=== PATIENT | female | born 1980 | race African-American/Black ===

== ENCOUNTER 2022-04-16 10:03 | Emergency (ER) | payer OTHER, SELFPAY ==
[2022-04-16 10:11] VITALS: BP 202/97; PULSE 63; RESP 14; TEMP 36.4; O2SAT 98
--- NOTE | 2022-04-16 10:15 | ECG_ITS ---
Measurements Intervals Only Rate: 66 P: 26 NE: 140 QRS: 35 QRSD: 91 T: 26 QT: 385 QTc: 404 Interpretive Statements SINUS RHYTHM NO PREVIOUS ECG AVAILABLE FOR COMPARISON Electronically Signed On 04-16-2022 15:08:03 CAFETERIA ASSOCIATE by Cesilia Barlow M.D.
[2022-04-16 10:31] LABS: Basophils Absolute Auto 0.1 K/mm3 (0.0-0.1); Basophils Percent Auto 0.9 % (0.2-1.2); Eosinophils Absolute Auto 0.1 K/mm3 (0-0.3); Eosinophils Percent Auto 1.1 % (0-4.4); Hematocrit 33.6 % (37.0-47.0); Hemoglobin 10.3 g/dL (12.0-15.0); Immature Granulocyte Absolute 0.01 K/mm3 (0.00-0.031); Immature Granulocyte Percent A 0.2 % (0-0.5); Lymphocytes Absolute Auto 1.76 K/mm3 (0.9-3.2); Lymphocytes Percent Auto 31.3 % (18.3-44.2); Mean Corpuscular HGB Conc 30.7 g/dl (32-36); Mean Corpuscular Hemoglobin 23.9 pg (26-34); Mean Platelet Volume 9.9 fl (7.4-10.4); Monocytes Absolute Auto 0.4 K/mm3 (0.1-0.6); Monocytes Percent Auto 6.4 % (2.6-8.5); Neutrophils Absolute Auto 3.4 K/mm3 (1.3-6.7); Neutrophils Percent Auto 60.1 % (45.5-73.1); Platelet Count Result 365 k/mm3 (150-375); Red Blood Count 4.31 M/mm3 (4.2-5.4); Red Cell Distribution Width 17.7 % (11.5-14.5); White Blood Count 5.6 K/mm3 (4.5-10.0)
[2022-04-16 10:46] LABS: Alanine Aminotransferase 13 U/L (6-35); Albumin Level 4.2 g/dL (3.5-5.1); Alkaline Phosphatase 61 U/L (38-126); Anion Gap 4 mmol/L (8-16); Aspartate Amino Transferase 28 U/L (14-36); Bilirubin,Total 0.4 mg/dL (0.2-1.3); Blood Urea Nitrogen 11 mg/dL (7-17); Calcium 8.4 mg/dL (8.4-10.2); Carbon Dioxide 27 mmol/L (22-30); Chloride 106 mmol/L (98-107); Estimated CRCL calculation 110 ml/min; Estimated Glomerular Filt Rate > 60; Glucose 84 mg/dL (65-110); Potassium 5.4 mmol/L (3.4-5.0); Sodium 137 mmol/L (137-145)
[2022-04-16 10:57] LABS: Troponin I < 0.012 ng/mL (0.000-0.034)
[2022-04-16 11:13] VITALS: BP 216/112; PULSE 78; RESP 18; O2SAT 99
--- NOTE | 2022-04-16 11:15 | PC.NURSE ---
patient refuses to undress or be put on monitor stating thatshe has things to do and cant be here long
--- NOTE | 2022-04-16 12:07 | ED.GENADULT ---
HPI - General Adult General Chief complaint: Recheck/Abnormal Lab/Rx Stated complaint: Hypertension - sent by GARDENER Time Seen by Provider: 04/16/22 11:53 History of Present Illness HPI narrative: 42-year-old female with remote history of hypertension presenting to the emergency department for evaluation of elevated blood pressure. Patient does not have a primary care physician. Patient was following up with her POCKET SETTER LOCKSTITCH today for routine checkup due to her elevated blood pressure she was referred to the emergency department. Patient is currently denying any complaints. Patient states that yesterday she did have a headache but attributes that to not eating very much. Patient denies any current headache and denies any associated chest pain or shortness of breath. Patient is unaware of any other past medical issues other than hypertension. Related Data Home Medications Medication Instructions Recorded Confirmed No Home Medications 04/16/22 04/16/22 Allergies Allergy/AdvReac Type Severity Reaction Status Date / Time No Known Allergies Allergy Unverified 04/16/22 10:04 Review of Systems Review of Systems: CONSTITUTIONAL: Denies fever, chills, or sweats. EYES: Denies visual changes, redness, or discharge. ENT: Denies rhinorrhea, congestion, sore throat, or otalgia. CARDIOVASCULAR: Denies chest pain, palpitations, or edema. RESPIRATORY: Denies cough or dyspnea. GASTROINTESTINAL: Denies abdominal pain, nausea, vomiting, or diarrhea. GENITOURINARY: Denies dysuria or hematuria. SKIN: Denies rash or itching. MUSCULOSKELETAL: Denies back pain, joint pain, or myalgia. 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 HEAD: normocephalic, atraumatic. EYES: PERRLA/EOMI, conjunctivae clear. NOSE: Normal no drainage EARS:TMS clear with good light reflex. THROAT: Pharynx clear, no exudate. NECK: Supple. No adenopathy, no masses. RESPIRATORY: Airway patent, respirations nonlabored. Clear to auscultation bilaterally, no rales, rhonchi, wheezing. CARDIOVASCULAR: Regular rate and rhythm without murmurs rubs or gallops. ABDOMINAL: Soft, nontender, nondistended, normal bowel sounds MUSCULOSKELETAL: Moves all extremities. Strength/ROM intact, No edema, No calf tenderness. NEURO: Alert. Cranial nerves II through XII intact. Grossly intact SKIN: Warm, dry. Normal Color Course Course Emergency Course: Patient was notified of her elevated potassium and her elevated blood pressure. Patient was strongly encouraged to to stay but patient repeated back in her own words that she was aware of the risk of having an elevated potassium and untreated blood pressure. Patient did not even want to stay for me to have a discussion with the on-call medical doctor to get her started on an antihypertensive. Vital Signs Vital signs: Vital Signs Temperature 97.6 F 04/16/22 10:11 Pulse Rate 63 04/16/22 10:11 Respiratory Rate 14 04/16/22 10:11 Blood Pressure 202/97 H 04/16/22 10:11 Pulse Oximetry 98 04/16/22 10:11 Oxygen Delivery Room Air 04/16/22 10:11 Temperature 97.6 F 04/16/22 10:11 Pulse Rate 63 04/16/22 12:33 Respiratory Rate 16 04/16/22 12:33 Blood Pressure 162/123 H 04/16
--- NOTE | 2022-04-16 12:15 | PC.NURSE ---
pt states she cannot stay so states she is refusing treatment at this time. edp made aware.
--- NOTE | 2022-04-16 12:26 | PC.NURSE ---
dr fan at bedside explaining risks of leaving ama. paper signed.
[2022-04-16 12:33] VITALS: BP 162/123; PULSE 63; RESP 16
== END 2022-04-16 12:33 | disposition left against medical advice (07) ==
PROVIDERS: Emergency Medicine; Emergency Provider Emergency Medicine
DX: I10 Essential (primary) hypertension (principal); E87.5 Hyperkalemia
CPT/HCPCS: 36415; 80053; 84484; 85025; 93005; 99284

== ENCOUNTER 2022-04-17 14:59 | Emergency (ER) | payer OTHER, SELFPAY ==
--- NOTE | ~2022-04-17 | CT_ITS ---
EXAMINATION: CT brain wo con INDICATION: Headache COMPARISON: None TECHNIQUE: Standard unenhanced head CT. The dose-length product (DLP) was 605.33 mGy-cm. The mA was a djusted according to patient size. Iterative reconstruction technique was employed. FINDINGS: There is no intracranial hemorrhage, acute infarction, or abnormal mass lesion. The ventric les are normal. There is no abnormal mass effect or midline shift. The powell-white matter differentiat ion is normal. The basal cisterns are patent. The orbits are normal. The paranasal sinuses, mastoids and calvarium are normal. IMPRESSION: 1. No acute intracranial abnormality. Reviewed, dictated and finalized at location A. [employer]
--- NOTE | ~2022-04-17 | XR_ITS ---
EXAMINATION: XR chest 2V 04/17/2022 16:50 INDICATION: Hypertension. Chest pain. PROCEDURE: 2 view chest COMPARISON: No prior studies for comparison. FINDINGS: The lungs are clear. The cardiomediastinal silhouette is within normal limits. There are no pleural effusions. There is no pneumothorax suspected. IMPRESSION: 1: NO ACUTE CARDIOPULMONARY DISEASE. Reviewed, dictated and finalized at location A. E RIGGER
[2022-04-17 15:24] VITALS: BP 211/116; PULSE 67; RESP 18; TEMP 36.8; O2SAT 100
--- NOTE | 2022-04-17 16:36 | ECG_ITS ---
Measurements Intervals [place] Rate: 69 P: 33 AL: 140 QRS: 38 QRSD: 86 T: 13 QT: 394 QTc: 423 Interpretive Statements SINUS RHYTHM NORMAL ECG COMPARED TO ECG 04/16/2022 10:18:30 NO SIGNIFICANT CHANGES Electronically Signed On 04-18-2022 7:44:19 INTERNAL WHOLESALER by Sameer Lenz M.D.
[2022-04-17] MEDS: ASPIRIN 81 MG CHEWABLE TABLET 324 MG PO (16:51)
[2022-04-17 16:53] VITALS: BP 182/121; PULSE 73; RESP 18; O2SAT 100
[2022-04-17 16:55] LABS: Basophils Percent Auto 0.5 % (0.2-1.2); Eosinophils Percent Auto 0.5 % (0-4.4); Hematocrit 35.9 % (37.0-47.0); Immature Granulocyte Absolute 0.01 K/mm3 (0.00-0.031); Immature Granulocyte Percent A 0.1 % (0-0.5); Lymphocytes Absolute Auto 2.46 K/mm3 (0.9-3.2); Lymphocytes Percent Auto 33.6 % (18.3-44.2); Mean Corpuscular HGB Conc 30.6 g/dl (32-36); Mean Corpuscular Hemoglobin 23.9 pg (26-34); Mean Platelet Volume 9.9 fl (7.4-10.4); Monocytes Absolute Auto 0.4 K/mm3 (0.1-0.6); Monocytes Percent Auto 5.7 % (2.6-8.5); Neutrophils Absolute Auto 4.4 K/mm3 (1.3-6.7); Neutrophils Percent Auto 59.6 % (45.5-73.1); Platelet Count Result 414 k/mm3 (150-375); Red Cell Distribution Width 17.6 % (11.5-14.5); White Blood Count 7.3 K/mm3 (4.5-10.0)
[2022-04-17 17:08] LABS: Prothrombin Time 13.1 Seconds (11.1-14.7)
[2022-04-17 17:09] LABS: Partial Thromboplastin Time 28.2 SECONDS (22.3-36.8)
[2022-04-17 17:14] LABS: Alanine Aminotransferase 14 U/L (6-35); Albumin Level 4.7 g/dL (3.5-5.1); Alkaline Phosphatase 65 U/L (38-126); Anion Gap 5 mmol/L (8-16); Aspartate Amino Transferase 32 U/L (14-36); Bilirubin,Total 0.6 mg/dL (0.2-1.3); Blood Urea Nitrogen 9 mg/dL (7-17); Calcium 8.8 mg/dL (8.4-10.2); Carbon Dioxide 27 mmol/L (22-30); Chloride 102 mmol/L (98-107); Estimated CRCL calculation 95 ml/min; Estimated Glomerular Filt Rate > 60; Glucose 91 mg/dL (65-110); Lipase 156 U/L (23-300); Potassium 4.4 mmol/L (3.4-5.0); Sodium 134 mmol/L (137-145)
[2022-04-17 17:25] LABS: Troponin I < 0.012 ng/mL (0.000-0.034)
[2022-04-17 17:45] VITALS: BP 190/118; PULSE 69; RESP 20; O2SAT 97
--- NOTE | 2022-04-17 18:05 | ED.RECABL ---
HPI - Recheck/Abnormal Lab/Rx General Chief Complaint: Recheck/Abnormal Lab/Rx Stated Complaint: HTN Time Seen by Provider: 04/17/22 17:06 Source: patient Mode of arrival: ambulatory Limitations: no limitations History of Present Illness HPI narrative: This is a 42-year-old female that presents to the emergency department for elevated blood pressure. Does report known history of hypertension. Reports she when she was in her 20s she was controlled on antihypertensives. Reports she has not been on any antihypertensives in years. Does note that her blood pressure ran high in her pregnancies, about 5 years ago. She was seen at her fund director office yesterday and her blood pressure was elevated so she was sent to the ER. She did not wish to stay in the hospital at that time or have any further treatment. She tried to follow-up with PCP today and once again was sent back to the ER. Reports last night she was not feeling well she had a headache and felt some tingling in her feet. Today she currently has no complaints. Her PCP did prescribe an antihypertensive. She has not picked this up or taken it yet. Denies chest pain, shortness of breath, focal numbness or weakness, or lower extremity edema. Related Data Home Medications Medication Instructions Recorded Confirmed No Home Medications 04/16/22 04/16/22 Allergies Allergy/AdvReac Type Severity Reaction Status Date / Time No Known Allergies Allergy Unverified 04/16/22 10:04 Review of Systems Review of Systems: CONSTITUTIONAL: Denies fever EYES: Denies visual changes CARDIOVASCULAR: Denies chest pain, or edema. RESPIRATORY: Denies dyspnea. GASTROINTESTINAL: Denies vomiting NEUROLOGIC: Reports headache. Denies numbness, or weakness. 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 HEAD: Normocephalic, atraumatic. EYES: PERRLA and EOMI. ENT: Nares clear, no rhinorrhea or epistaxis. Mucous membranes moist. Oropharynx without tonsillar hypertrophy exudate or other lesions. Bilateral TMs pearly powell non-bulging NECK: Supple. No adenopathy or masses. CHEST: Clear to auscultation. No respiratory distress. No wheezes rales or rhonchi HEART: Regular rate and rhythm. No murmur heard. Normal peripheral pulses. EXTREMITIES: Normal range of motion. No edema. Strength equal in bilateral upper and lower extremities (5/5) SKIN: Warm, dry, no rash. NEURO: No focal deficits. Alert and oriented x3. Cranial nerves II through XII grossly intact PSYCH: Normal mood and affect Course Vital Signs Vital signs: Vital Signs Temperature 98.2 F 04/17/22 15:24 Pulse Rate 67 04/17/22 15:24 Respiratory Rate 18 04/17/22 15:24 Blood Pressure 211/116 H 04/17/22 15:24 Pulse Oximetry 100 04/17/22 15:24 Temperature 98.2 F 04/17/22 15:24 Pulse Rate 79 04/17/22 18:45 Respiratory Rate 21 H 04/17/22 18:45 Blood Pressure 141/82 H 04/17/22 18:45 Pulse Oximetry 100 04/17/22 18:45 MDM - Recheck/Abnormal Lab/Rx MDM Narrative Medical decision making narrative: Patient presents to the emergency department for elevated blood pressures. Reports known longstanding histo
[2022-04-17] MEDS: hydrALAZINE HCL 20 MG/ML VIAL 10 MG IV PUSH (18:24)
--- NOTE | 2022-04-17 18:30 | PC.NURSE ---
Pt to CT scan via stretcher at this time.
[2022-04-17 18:45] VITALS: BP 141/82; PULSE 79; RESP 21; O2SAT 100
[2022-04-17 19:15] LABS: Cholesterol 202 mg/dL (0-200); HDL Direct 53 mg/dL; Triglycerides 134 mg/dL (<150)
[2022-04-17 19:26] LABS: LDL Cholesterol Direct 110 mg/dL
== END 2022-04-17 19:43 | disposition home or self-care (01) ==
PROVIDERS: Emergency Medicine; Emergency Provider Physician Assistant; PCP Family Medicine
DX: I10 Essential (primary) hypertension (principal)
CPT/HCPCS: 36415; 70450; 71046; 80053; 80061; 83690; 84443; 84484; 85025; 85610; 85730; 93005; 96374; 99284; A9270; J0360

== ENCOUNTER 2023-06-17 14:46 | Outpatient (CLI) | payer OTHER, SELFPAY ==
--- NOTE | ~2023-06-17 | MM_ITS ---
EXAMINATION: MM screening vannesa BI w mary alice HISTORY: Screening mammogram TECHNIQUE: Craniocaudal and mediolateral oblique 3-D tomosynthesis images were obtained and synthetic 2-D images were generated. CAD analysis was submitted and interpreted. COMPARISON: No prior mammogram is available for comparison at this institution. Baseline examination. BREAST PARENCHYMAL COMPOSITION: The breasts are almost entirely fatty. FINDINGS: There is no evidence of suspicious mass, calcification, or architectural distortion to sugg est malignancy in either breast. There has been no suspicious interval change. IMPRESSION: 1. No mammographic evidence of malignancy. 2. Recommend routine screening mammography in one year. BI-RADS Category 1: Negative Reviewed, dictated and finalized at location A. CRANE DRIVER
== END 2023-06-17 14:47 | disposition home or self-care (01) ==
LOC: ANHIMG 14:48
PROVIDERS: PCP Emergency Medicine; Visit Provider Obstetrics & Gynecology
DX: Z12.31 Encounter for screening mammogram for malignant neoplasm of breast (principal)
CPT/HCPCS: 77063; 77067

== ENCOUNTER 2024-10-13 07:14 | Outpatient (CLI) | payer OTHER, SELFPAY ==
--- NOTE | ~2024-10-13 | MM_ITS ---
EXAMINATION: MM screening vannesa BI w mary alice HISTORY: Screening mammogram TECHNIQUE: Craniocaudal and mediolateral oblique 3-D tomosynthesis images were obtained and synthetic 2-D images were generated. CAD analysis was submitted and interpreted. COMPARISON: 06/17/2023 BREAST PARENCHYMAL COMPOSITION: The breasts are almost entirely fatty. FINDINGS: There is no evidence of suspicious mass, calcification, or architectural distortion to sug gest malignancy in either breast. There has been no suspicious interval change. IMPRESSION: 1. No mammographic evidence of malignancy. 2. Recommend routine screening mammography in one year. BI-RADS Category 1: Negative Reviewed, dictated and finalized at location B.
--- OUTSIDE RECORDS SUMMARY | 2024-10-13 07:18 | XMS_ITS | Clinical Summary ---
Author Organization [facility] C Address [address] [place] [address] Care Team Providers Care Archives Specialist Name Role Phone Sameer Cleaning MD Unavailable [phone] Percy Toledo MD Primary Care Provider [phone] Lenore Ott MD Unavailable [phone] Allergies No known active allergies Medications amLODIPine (NORVASC) 10 mg tabletIndication s:Hypertension, essential Take 1 tablet (10 mg total) by mouth daily 90 tablet 3 08/24/2024 6 Active atenoloL (TENORMIN) 25 mg tabletIndication s:Hypertension, essential Take 1 tablet (25 mg total) by mouth daily 30 tablet 2 08/24/2024 5 Active Active Problems Problem Noted Date Diagnosed Date Over weight 08/20/2022 Shortness of breath 08/20/2022 Hypertension, essential 08/20/2022 History of stillbirth 03/21/2019 Class 3 severe obesity due t o excess calories with serious comorbidity in adult 03/21/2019 Assessment & Plan (08/24/2024 9:39 AM CDT): Chronic. Uncontrolled. Goal: 125lb Recommend Nutritional every other Thursday Seminar. Recommended Medication :none History of classical section 03/21/2019 Heterozygous MTHFR mutation [id number] 03/21/2019 Encounter for care or examin ation of mother immediately after delivery 02/09/2019 Chronic hypertension 10/23/2018 Prothrombin mutation 09/16/2018 Assessment & Plan (10/07/2018 2:26 PM CDT): Continue lovenox 60mg daily Growth assessment every 4 weeks testing at 32 weeks gestation Resolved Problems Problem Noted Date Diagnosed Date Resolved Date Supervision of high risk pre gnancy in third trimester 02/07/2019 03/21/2019 Overview (02/07/2019): Added automatically from request for surgery [id number] History of HELLP syndrome, currently 10/24/19 19 03/21/2019 Elevated blood pressure reading 10/07/2018 03/21/2019 Assessment & Plan (10/07/2018 2:28 PM CDT): Cbc, cmp and uric acid drawn today Reviewed when to call headache, blurry vision. Pt to follow up in 2 weeks unless any symtomsprior. (history of severe pre-E and HELLP) Supervision of other high ri sk , antepartum 09/16/2018 03/21/2019 Assessment & Plan (10/07/2018 2:26 PM CDT): SIUP at 15_6 weeks gestation in tv presentation with a normal chico. Anterior placenta. RTN in 2 weeks Thrombophilia affecting , antepartum 09/17/19 19 03/21/2019 History of stillbirth in cur rently patient, unspecified trimester 09/16/2018 9 MTHFR deficiency complicatin g , unspecified trimester 09/16/2018 03/21/2019 Assessment & Plan (10/07/2018 2:25 PM CDT): Continue asa and folgard rx bid Obesity affecting in first trimester 09/03/2018 03/21/2019 High-risk , multigr avida of advanced maternal age, antepartum 09/03/2018 03/21/2019 AMA (advanced maternal age) multigravida 35+ 7 03/21/2019 Encounters Date Type Department Care Team Description 08/24/2024 9:00 AM CDT Office Visit [facility] Family Medicine at [address] [place] [address] Percy Toledo MD Encounter for annual health examination (Primary Dx); Encounter for screening mammogram for malignant neoplasm of breast; Class 2 severe obesity due to excess calories with serious comorbidity and body mass index (BMI) of 38.0 to 38.9 in adult (HCC); Hypertension, essential from Last 3 Months Immunizations Immunization Administration Dates Next Due DTP 01/11/1987, 6,1982,05/06,1982 Hep B, Adolescent or Pediatric 12/27/1996 Influenza, Quadrivalent, Spl it, Preservative Free, Intramuscular 02/08/2019 Influenza, Unspecified 02/17/2024(Deferred: Poppy ent decision) MMR 02/12/2019(Deferred: Patient Refused),02/11/1993,08/24/1984 OPV 01/11/1987, 5,1982,05/06,1982 Pfizer SARS-CoV-2 Monovalent Vaccination (12+ Yrs) PURPLE 12/08/2020,11/17/2020 Tdap 02/09/2019 Surgical History Surgery Date Site/Laterality Comments SECTION 05/11/2005 - 05/10/2006 Medical History Medical History Date Comments Hypertension Family History Medical History Relation Name Comments Hypertension Father Diabetes Maternal Grandmother Heart disease Maternal Grandmother Hypertension Maternal Grandmother Diabetes Mother Relation Name Status Comments Father Alive Maternal Grandmother Mother Alive Social History Tobacco Use Types Packs/Day Years Used Date Smoking Tobacco: Never Smokeless Tobacco: Never Alcohol Use Standard Drinks/Week Comments Never 0 (1 standard drink = 0.6 oz pur e alcohol) Humiliation, Afraid, Rape, and Kick questionnair e Answer Date Recorded Fear of Current or Ex-Partner No Emotionally Abused No 09/03/2018 Physically Abused No 09/03/2018 Sexually Abused No 09/03/2018 AUDIT-C Answer Date Recorded Frequency of Alcohol Consumption Never 09/03/2018 Average Number of Drinks Not on file 019 Frequency of Binge Drinking Not on file 08/10 PHQ-2 Answer Date Recorded PHQ-2 Total Score (If total score is 3 or more points, staff should administer the PHQ-9) 0 08/24/2024 Paris Depression Scale Answer Date Recorded Paris Depression Scale Total 0 03/21/2019 The thought of harming myself has occurred to me . 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[employer]ES Gender Identity Not on file Sexual Orientation Not on file Obstetrics History Para Term AB IAB SAB Ectopic Multiple Livin g Live Births 3 3 3 0 1 1 Date Outcome GA Total Labor Labor/2nd/3rd Weight Sex Type Anes PTL Cammy A1 A5 Name Clin 2005 22w 0d 0.369 kg (13 oz) F CS-Un spec Epidur al N Demis e Apolonia Complications:Toxemia in pre gnancy 2016 23w 0d 0.142 kg (5 oz) M Vag-S pont N Demis e Sorand en Complications:Toxemia in pre gnancy 2018 33w 4d 1.51 kg (3 lb 5.3 oz) M CS-LT ranv Epidur al N Livin g 3 7 LATHA CARVAJAL, Geovanni Lopez MD Complications:Pre eclampsia Delivery [facility]) Last Filed Vital Signs Vital Sign Reading Time Taken Comments Blood Pressure 147/98 08/24/2024 9:17 AM CDT Pulse 71 08/24/2024 9:17 AM CDT Temperature 36.4 C (97.6 F) 08/24/2024 9:17 AM CDT Respiratory Rate 18 08/24/2024 9:17 AM CDT Oxygen Saturation 97% 08/24/2024 9:17 AM CDT Inhaled Oxygen Concentration - - Weight 95.1 kg (209 lb 9.6 oz) 08/24/2024 9:17 A M CDT Height 157.5 cm (5' 2) 08/24/2024 9:17 AM CDT Body Mass Index 38.34 08/24/2024 9:17 AM CDT Plan of Treatment Health Maintenance Due Date Last Done Comments Cervical Cancer Screening 1982 Varicella Vaccines (1 of 2 - 13+ 2-dose series) 1995 Covid-19 Vaccine (3 - season) 2024 12/08/2020, 11/17/2020 Influenza Vaccine (Season Ended) 2025 02/08/2019 Depression Screening 08/24/2025 08/24/2024, 08/24/2024, 03/21/2019, Additional history exists Regular Well Visit/Exam 18-64 08/24/2025 08/24/2024 Breast Cancer Screening-Mammogram 10/06/2025 Postponed from 1982 (Patient declined, but will receive in the future) DTaP/Tdap/Td Vaccine (7 - Td or Tdap) 02/09/2029 02/09/2019, 01/11/1987, 12/02/1985, Additional history exists Hepatitis B Screening Completed 12/27/1996 Hepatitis C Screening Completed 09/06/2018 HPV Vaccines Aged Out No longer eligi ble based on patient's age to complete this topic Pneumococcal vaccine <65 Aged Out No longer eligible based on patient's age to complete this topic Medical Devices Implanted Type Area Can Sealer Device Identifier Shelf Expiration Date Model / Serial / Lot [employer] [id number] Seprafilm 6x5in Barrier Adhesion Sterile Disposable Latex Free - [id number] Implanted:Qty: 1 on 02/07/2019 by Sameer Cleaning MD at [facility] [employer] [id number] / / Procedures Procedure Name Priority Date/Time Associated Diagnosis Comments HEPATITIS C ANTIBODY Routine 09/06/2018 9:17 AM CDT Supervision of high risk in first trimester from Last 3 Months or Most Recently Relevant to Health Maintenance Results * Hepatitis C antibody (09/06/2018 9:17 AM CDT) Hep C Ab Non-Reactiv e Non-Reactiv e [facility] Blood specimen (specimen) 09/06/2018 9:17 AM CDT 09/06/2018 10:35 AM CDT Narrative [facility] - 09/06/2018 11:25 AM CDT us Sameer Cleaning MD LAB MICROBIOLOGY - GENERAL OR DERABLES Final Result [facility] [address] Department [place] [address] from Last 3 Months or Most Recently Relevant to Health Maintenance Insurance [employer] Address: [facility] [id number] [place] [address] [facility] [employer] Address: [address] [place] [address] Advance Directives For more information, please contact: [phone] * Full Code (Latest Code Status on File) Date Activated Date Inactivated Comments 02/07/2019 8:35 PM 02/14/2019 11:58 PM * Full Code Date Activated Date Inactivated Comments 02/07/2019 3:06 PM 02/07/2019 8:35 PM Care Teams Archives Specialist Relationship Specialty Start Date End Date Percy Toledo MD [address] [facility] [address] [place] [address] PCP - General Family Medicine 08/24/24 Sameer Cleanign MD Consulting Physician Obstetrics and Gynecology 09/03/18 Lenore Ott MD [address] [facility] [address] [place] [address] Obstetrics and Gynecology 08/24/24
--- OUTSIDE RECORDS SUMMARY | 2024-10-13 07:18 | XMS_ITS | Encounter Summary ---
Author Organization [facility] Address [address] [place] [address] Care Team Providers Care Rail Car Painter/Sandblaster Name Role Phone Gerald Saeed MD Primary Care Provider Unav ailable Encounter Details Date Type Department Care Team (Late st Contact Info) Description 03/09/[address] 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 Answer Date of Assessment Author No 03/03/2017 1:56 PM CDMelissa Ortiz, RN * Is person blind or have serious difficulty seeing? Answer Date of Assessment Author No 03/03/2017 1:56 PM CDT Melissa Roman RN * Does person have serious difficulty walking/climbing stairs? Answer Date of Assessment Author No 03/03/2017 1:56 PM CDT Melissa Roman RN * Does person have difficulty dressing/bathing? Answer Date of Assessment Author No 03/03/2017 1:56 PM CDT Melissa Roman RN * Does person have difficulty doing errands alone? Answer Date of Assessment Author No 03/03/2017 1:56 PM CDT Melissa Roman RN documented as of this encounter Mental Status * Does person have difficulty concentrating/remembering/making decisions? Answer Entry Date Author No 03/03/2017 1:56 PM CDT Melissa Roman RN documented in this encounter Plan of Treatment Not on file documented as of this encounter Procedures Procedure Name Priority Date/Time Associated Diagnosis Comments CYTOGENETICS PROD OF CONCEPTION PANEL Routine 03/09/2017 1:00 PM CDT Missed documented in this encounter Results * CYTOGENETICS PROD OF CONCEPTION PANEL (03/09/2017 1:00 PM CDT) Indication for Study Missed 03/10/2017 10:26 AM T [facility] Results Cytogenetics The request for chromosome analysis on villi is canceled by Dr. Bird because conventional and microarray chromosome analyses of the amniotic fluid were done on 03/05/2017 and found normal ([id number]). 03/10/2017 10:26 AM CDT [facility] Historical Cytogenomic Report [id number] on 03/05/2017 Results Analysis of 5 cells and count of 15 cells (2 cells karyotyped, GTL-banding) derived from 15 colonies of 2 primary amniotic fluid cultures showed a 46,XY chromosome pattern. DNA extracted from cell-free DNA found in the amniotic fluid and control DNA were labeled with different fluorescent tags and hybridized onto Agilent 4-plex oligo 108K/hg-19. Array-CGH analysis of both DNAs revealed no clinically significant deviation indicating no deletion nor duplication: arr[GRC37](1-22)x2, (XY)x1 Normal male . Interpretation Male chromosome analysis showing 46,XY with no evidence for structural or numerical abnormalities in all cells examined at 450 band resolution. Chromosome microarray analysis is in progress to rule out microdeletions and microduplications. Cell-free DNA from the spun amniotic fluid was referred for array-CGH (Comparative Genome Hybridization) or Chromosomal Microarray Analysis (BAG REPAIRER) to rule out microdeletions or microduplications based on clinical features. Array-CGH using Agilent 4-plex oligo 108K/hg-19 revealed no clinically significant abnormality for the regions included on the current version. Variants were identified and found to be benign. A duplication of less than 500 kb and a deletion that contains no known gene would be considered a benign variant at this point. A duplication of less than 500 kb that contains part of a gene found duplicated in the database of genome variants would also be considered a benign variant at this point. Losses smaller than 1Mb and gains smaller than 2Mb are not reported prenatally unless they involve regions of the genome with clear clinical significance according to ACMG guidelines. Note: Array-CGH does not detect balanced translocations, inversions, low level mosaicism or balanced insertions. In addition, gene abnormalities of a size less than 10 Kb and imprinting defects can't be ruled out by this assay. at 0934 Preliminary result electronically signed by Anni Bird, PhD ABMG on 02/26/2017 at 0937 03/10/2017 10:26 AM CDT [facility] Client Information [facility] - [id number] [facility] Lab #: [id number] CHROTIS 03/10/2017 10:26 AM CDT [facility] Embedded Images 10:26 AM CDT [facility] Pathology/Cytolo gy CHORIONIC VILLI SPECIMEN / Unknown 03/09/2017 1:00 PM CDT 03/09/2017 5:13 PM CDT us Constantine Romano MD LAB - PATHOLOGY/CYTOLOGY KULWANT DOOLEY Final Result [facility] [address] [facility] [place] [address] documented in this encounter Visit Diagnoses Diagnosis Missed (HCC) Missed documented in this encounter Care Teams Rail Car Painter/Sandblaster Relationship Specialty Start Date End Date Gerald Saeed MD PCP - General 04/23/21 documented as of this encounter
--- OUTSIDE RECORDS SUMMARY | 2024-10-13 07:18 | XMS_ITS | CONTINUITY OF CARE DOCUMENT ---
Author Name julian dontedavey Address Unknown Organization [facility] Address [address] [place] [address] Phone [phone] Care Team Providers Care Sales Manager Prearranged Funerals Name Role Phone Junior Mitchell MD Unavailable REBECCA SALDIVAR MD Unavailable [phone] REBECCA SALDIVAR MD Unavailable [phone] PROBLEMS Condition Status Date Provider Notes Hypertension active Junior Mitchell MD Over weight active Junior Mitchell MD Shortness of breath (SOB) active Junior webb MD ENCOUNTERS Date Type Provider Location Encounter Diag nosis - In-person encounter Office Visit Junior Mitchell MD [facility] - In-person encounter Office Visit Junior Mitchell MD [facility] HypertensionOver weightShortness of breath (SOB) VITAL SIGNS Date Observation Value Provider Body Mass Index (Ratio) 34.56 kg/m2 Sagar Mitchell MD blood pressure, diastolic 92 mm[Hg] St apryl Fung blood pressure, systolic 139 mm[Hg] Loida Fung oxygen saturation, oximetry 100 % Antonella Fung pulse rate 68 /min Antonella Fung respiratory rate E&M 18 /min Antonella knox weight E&M 189 [lb_av] Antonella Fung height E&M 62 [in_i] Antonella Fung blood pressure, diastolic 91 mm[Hg] Ra erna Mitchell MD blood pressure, systolic 137 mm[Hg] Eagle Sadi oxygen saturation, oximetry 98 % Lnida Sadi respiratory rate E&M 15 /min Linda Vu dailey pulse rate 70 /min Linda Sadi weight E&M 186 [lb_av] Linda Sadi ALLERGIES No Known Drug Allergies HISTORY OF MEDICATION USE Medication Status Instructions Dates Provider Indications Com ments FeroSul 325 mg (65 mg iron) tablet active TAKE 1 TABLET BY MOUTH DAILY Antonella Fung hydrochlorothiazide 12.5 mg tablet active Antonella Fung losartan 25 mg tablet active 1 tablet o nce a day Junior Mitchell MD amlodipine 10 mg tablet active Junior Mitchell MD amlodipine benzoate unspecified unspecified completed - Junior Mitchell MD SOCIAL HISTORY Date Observation Value Provider social history E&M Marital Statu s: Single Hillary cabral: 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 Junior Mitchell MD passive cigarette sm rhonda exposure no Linda Avitia chewing tobacco use Never Linda Koch ketkarly seatbelt usage 75 % Linda Avitia caffeine use, averag e drinks per day 0 /d Linda Avitia drug use no Linda Avitia alcohol use no Linda Avitia smoking status Never smoker Lindavelia Avitia FAMILY HISTORY Family Member Condition Father ME male <55 INSURANCE PROVIDERS Payer name Policy type / Coverage type Neeru red republican ID CIGNA August [id number] ADVANCE DIRECTIVES Name Date DISCUSSED - NO DECISION MADE TREATMENT PLAN Date Name Performer [id number],S, Junior hinojosa MD [id number],S, Junior hinojosa MD [id number],B,Needs weight loss Junior Mitchell MD [id number],S, Junior hinojosa MD [id number],N,Check ECHO Ra erna Mitchell MD [id number],N,A dd heather bishopk ECHO Junior Mitchell MD Cardiology Junior Mitchell MD Cardiology Junior Mitchell MD Cardiology:Needs weight loss Tc Mitchell MD Cardiology Junior Mitchell MD Cardiology:Check ECHO Junior webb MD Cardiology:Elzbieta valles ECHO Junior Mitchell MD Date Name Complete Echo
--- OUTSIDE RECORDS SUMMARY | 2024-10-13 07:18 | XMS_ITS | Referral Summary ---
Author Organization [facility] Address [address] [place] [address] Care Team Providers Care Cereal Maker Name Role Phone Sameer Cleaning MD Unavailable [phone] Percy Toledo MD Primary Care Provider [phone] Lenore Ott MD Unavailable [phone] Encounters Date Type Department Care Team Description 08/24/2024 9:00 AM CDT Office Visit [facility] Family Medicine at [address] [place] [address] Percy Toledo MD Encounter for annual health examination (Primary Dx); Encounter for screening mammogram for malignant neoplasm of breast; Class 2 severe obesity due to excess calories with serious comorbidity and body mass index (BMI) of 38.0 to 38.9 in adult (HCC); Hypertension, essential from Last 3 Months Allergies No known active allergies Medications amLODIPine [...] (02/07/2019): Added automatically from request for surgery [id number] History of HELLP syndrome, currently 10/24/19 21 [...] (advanced maternal age) multigravida 35+ 7 03/21/2019 Immunizations Immunization Administration Dates Next Due DTP 01/11/1987, 6,1982,05/06,1982 Hep B, Adolescent or Pediatric 12/27/1996 Influenza, Quadrivalent, Spl it, Preservative Free, Intramuscular 02/08/2019 Influenza, Unspecified 02/17/2024(Deferred: Poppy ent decision) MMR 02/12/2019(Deferred: Patient Refused),02/11/1993,08/24/1984 OPV 01/11/1987, 5,1982,05/06,1982 Pfizer SARS-CoV-2 Monovalent Vaccination (12+ Yrs) PURPLE 12/08/2020,11/17/2020 Tdap 02/09/2019 Social History Tobacco Use Types Packs/Day Years [...] staff should administer the PHQ-9) 0 08/24/2024 Allerton Depression Scale Answer Date Recorded Allerton Depression Scale Total 0 03/21/2019 The thought of harming myself has occurred to me . 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 Gender Identity Not on file Sexual Orientation Not on file Last Filed Vital Signs Vital Sign Reading [...] 08/24/2024 9:17 AM CDT Plan of Treatment Not on file Medical Devices Implanted Type Area Lean Manager Device Identifier Shelf Expiration Date Model / Serial / Lot [employer] [id number] Seprafilm 6x5in Barrier Adhesion Sterile Disposable Latex Free - [id number] Implanted:Qty: 1 on 02/07/2019 by Sameer Cleaning MD at [facility] [employer] [id number] / / Procedures Procedure Name Priority Date/Time Associated Diagnosis Comments HEPATITIS C ANTIBODY Routine 09/06/2018 9:17 AM CDT Supervision of high risk in first trimester from Last 3 Months or Most Recently Relevant to Health Maintenance Results * Hepatitis C antibody (09/06/2018 9:17 AM CDT) Hep C Ab Non-Reactiv e Non-Reactiv e [facility] Blood specimen (specimen) 09/06/2018 9:17 AM CDT 09/06/2018 10:35 AM CDT Narrative [facility] - 09/06/2018 11:25 AM CDT us Sameer Cleaning MD LAB MICROBIOLOGY - GENERAL OR DERABLES Final Result [facility] [address] Department [place] [address] from Last 3 Months or Most Recently Relevant to Health Maintenance Insurance [employer] EM[employer] Address: [facility] [id number] [place] [address] [employer] HEALTH [employer]ANS Address: [facility] [id number] [place] [address] Advance Directives For more information, please contact: [phone] * Full Code (Latest Code Status on File) Date Activated Date Inactivated Comments 02/07/2019 8:35 PM 02/14/2019 11:58 PM * Full Code Date Activated Date Inactivated Comments 02/07/2019 3:06 PM 02/07/2019 8:35 PM Care Teams Cereal Maker Relationship Specialty Start Date End Date Percy Toledo MD [address] [facility] [address] [place] [address] PCP - General Family Medicine 08/24/24 Sameer Cleaning MD Consulting Physician Obstetrics and Gynecology 09/03/18 Lenore Ott MD [address] [facility] [address] [place] [address] Obstetrics and Gynecology 08/24/24
--- OUTSIDE RECORDS SUMMARY | 2024-10-13 07:18 | XMS_ITS | Clinical Summary ---
Author Organization [facility] Address [address] [place] [address] Care Team Providers Care Potline Monitor Name Role Phone Gerald Saeed MD Primary Care Provider Unav ailable Source Comments [facility],non-owned Affiliates and Associated Physician Practices is amultiple site organization consisting of ambulatory clinics and hospital sitesin [place], [place], [place] and [place]. This disclosure is being madepursuant to the Care Everywhere program and may not contain all information available regarding this patient. Last updated 18.[facility] Allergies No known active allergies Medications * Be aware that medications may not be up to date on this document. Alwaysverify current medications with the patient. metoprolol tartrate (LOPRESSOR) 25 MG tablet Take 25 mg by mouth 4 times daily Active ibuprofen (MOTRIN) 600 MG tablet Take 1 tablet by mouth every 6 hours as needed for Pain 60 tablet 1 7 Active docusate sodium (COLACE) 100 MG capsule Take 1 capsule by mouth 2 times daily 60 capsule 1 7 Active ferrous sulfate 325 (65 FE) MG tablet Take 1 tablet by mouth daily with breakfast 60 tablet 1 7 Active amLODIPine (NORVASC) 10 MG tablet Take 1 tablet by mouth once daily 30 tablet 2 7 Active Active Problems Patient Care Coordination No te Formatting of this note migh t be different from the original. NOPP/MFCC 02-03-17 Problem Noted Date Diagnosed Date Hydrops fetalis 02/18/2017 IUGR (intrauterine growth re striction) affecting care of mother 02/17/2017 AMA (advanced maternal age) multigravida 35+ Echogenic bowel of fetus 02/03/2017 Family History Medical History Relation Name Comments Diabetes - Type 2 Father Hypertension Father Hypertension Maternal Grandfather Hypertension Maternal Grandmother Diabetes - Type 2 Mother Hypertension Mother Hypertension Paternal Grandfather Hypertension Paternal Grandmother Relation Name Status Comments Father Alive Maternal Grandfather Maternal Grandmother Mother Paternal Grandfather Paternal Grandmother Social History Tobacco Use Types Packs/Day Years Used Date Smoking Tobacco: Never Smokeless Tobacco: Never Alcohol Use Standard Drinks/Week Comments No 0 (1 standard drink = 0.6 oz pur e alcohol) Comments No Sex and Gender Information Value Date Recorded Sex Assigned at Not on file 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 Gender Identity Not on file Sexual Orientation Not on file Occupation Industry Job Start Date Job End Date Not on file Not on file Not on file Not on file Last Filed Vital Signs Vital Sign Reading Time Taken Comments Blood Pressure 132/84 04/20/2017 9:30 AM CLAY STAIN MIXER Pulse 88 04/20/2017 9:30 AM CLAY STAIN MIXER Temperature 36.9 C (98.4 F) 03/08/2017 2:35 PM CDT Respiratory Rate 16 03/08/2017 2:35 PM CDT Oxygen Saturation 99% 03/08/2017 5:45 AM CDT Inhaled Oxygen Concentration - - Weight 100.7 kg (222 lb) 04/20/2017 9:30 AM CLAY STAIN MIXER Height 157.5 cm (5' 2) 04/20/2017 9:30 AM CLAY STAIN MIXER Body Mass Index 40.6 04/20/2017 9:30 AM CLAY STAIN MIXER Plan of Treatment Health Maintenance Due Date Last Done Comments LIPID TESTING 1982 MAMMOGRAM 1982 DTAP/TDAP/TD VACCINES (1 - Tdap) 2001 HEPATITIS B VACCINE (1 of 3 - 19+ 3-dose series) 2001 COVID-19 VACCINE (2023-2 5 season) 2024 12/08/2020, 11/17/2020 DEPRESSION SCREENING 05/11/2024 INFLUENZA VACCINE (Season Ended) 2025 02/08/2019 ZOSTER VACCINE (1 of 2) 01/07/2032 HEPATITIS C SCREENING Completed 03/03/2017 HIV SCREENING Completed 03/03/2017 HIB VACCINE Aged Out No longer eligi ble based on patient's age to complete this topic HPV VACCINE Aged Out No longer eligi ble based on patient's age to complete this topic MENINGOCOCCAL (Group B) VACCINE SHARED DECISION-MAKING Aged Out No longer eligible based on patient's age to complete this topic MENINGOCOCCAL GROUPS A/C/Y/W VACCINE Aged Out No longer eligible b ased on patient's age to complete this topic PNEUMOCOCCAL VACCINE Aged Out No long er eligible based on patient's age to complete this topic Procedures Procedure Name Priority Date/Time Associated Diagnosis Comments HEPATITIS SCREEN ACUTE Routine 03/03/2017 4:47 PM CDT HIV-1 HIV-2 ANTIBODY + HIV P24 AG PANEL Routine 03/03/2017 4:46 PM CDT from Last 3 Months or Most Recently Relevant to Health Maintenance Results * HEPATITIS SCREEN ACUTE (03/03/2017 4:47 PM CDT) Pathologist [facility] HAV Antibody IgM Non Reactive Non Reactive 03/03/2017 6:51 PM CDT [facility] HBsAg Non Reactive Non Reactive 03/03/2017 6:51 PM CDT [facility] HBc Antibody IgM Non Reactive Non Reactive 03/03/2017 6:51 PM CDT [facility] HCV Antibody Screen Non Reactive Non Reactive 03/03/2017 6:51 PM CDT [facility] HCV S/C Ratio 0.21 0.00 - 0.79 03/03/2017 6:51 PM CDT [facility] Comment: Rozsak-iq-jgrfpv ratio (S/CO) <0.80: Non Reactive Blood BLOOD SPECIMEN / Unknown Venipuncture / Unknown 03/03/2017 4:47 PM CDT 03/03/2017 4:59 PM CDT Narrative [facility] - 03/03/2017 6:51 PM CDT Non Reactive - Antibodies to Hepatitis C virus (HCV) were not detected, result does not exclude early acute HCV infection. Non Reactive - Antibodies to Hepatitis C virus (HCV) were not detected, result does not exclude early acute HCV infection. Barbara Soriano MD LAB - CHEMISTRY ORDERABLES Fi nal Result Performing Organization Address City/[facility]/ZIP Co de Phone Number [facility] [address] [place] [address] * HIV-1 HIV-2 ANTIBODY + HIV P24 AG PANEL (03/03/2017 4:46 PM CDT) [facility] HIV1/2 Ab + P24 Ag Non Reactive Non Reactive 03/03/2017 10:57 PM CDT [facility] Blood BLOOD SPECIMEN / Unknown Venipuncture / Unknown 03/03/2017 4:46 PM CDT 03/03/2017 4:59 PM CDT Narrative [facility] - 03/03/2017 10:57 PM CDT No Laboratory evidence of HIV infection. Barbara Soriano MD LAB - CHEMISTRY ORDERABLES nal Result Performing Organization Address [facility] Co de Phone Number [facility] [address] [place] [address] from Last 3 Months or Most Recently Relevant to Health Maintenance Insurance [facility] Advance Directives * Full Code (Latest Code Status on File) Date Activated Date Inactivated Comments 03/03/2017 2:21 PM 03/08/2017 4:08 PM Care Teams Potline Monitor Relationship Specialty Start Date End Date Gerald Saeed MD PCP - General 04/23/21
== END 2024-10-13 07:15 | disposition home or self-care (01) ==
LOC: ANHIMG 07:15
PROVIDERS: PCP Emergency Medicine; Visit Provider Obstetrics & Gynecology
DX: Z12.31 Encounter for screening mammogram for malignant neoplasm of breast (principal)
CPT/HCPCS: 77063; 77067